=== PATIENT | male | born 1990 ===

== ENCOUNTER → 2018-09-18 21:26 | Outpatient (REF) | payer OTHER, SELFPAY ==
[2018-09-18 21:30] LABS: Bacteria Urine None Seen; RBC Urine None Seen (0-5/HPF)
[2018-09-18 21:49] LABS: Add Manual Diff / Slide Review NO; Basophils Absolute Auto 100 /uL (0-100); Basophils Percent Auto 1.4 % (0-2); Eosinophils Absolute Auto 100 /uL (0-450); Eosinophils Percent Auto 1.8 % (2-4); Hematocrit 46.5 % (41-53); Hemoglobin 15.4 g/dL (13.5-17.5); Lymphocytes Absolute Auto 1600 /uL (1100-4500); Lymphocytes Percent Auto 24.5 % (25-40); Mean Corpuscular HGB Conc 33.1 % (30-36); Mean Corpuscular Hemoglobin 30.4 PG (26-34); Mean Corpuscular Volume 91.8 fL (80-100); Monocytes Absolute Auto 800 /uL (0-900); Monocytes Percent Auto 11.6 % (3-14); Neutrophils Absolute Auto 3900 /uL (1500-7000); Neutrophils Percent Auto 60.7 % (50-75); Platelet Count 293 X10^3/uL (150-400); Red Blood Cell Count 5.07 X10^6/uL (4.5-5.9); Red Cell Distribution Width 13.6 % (11.6-14.8); White Blood Cell Count 6.5 X10^3/uL (4.5-11.0)
[2018-09-18 22:10] LABS: Appearance Urine UA CLEAR; Bilirubin Urine UA NEGATIVE (NEGATIVE); Color Urine UA YELLOW; Glucose Urine UA NEGATIVE (Negative); Ketones Urine UA NEGATIVE (NEGATIVE); Leukocyte Esterase Urine UA NEGATIVE (NEGATIVE); Nitrite Urine UA NEGATIVE (Negative); Occult Blood Urine UA NEGATIVE (Negative); Protein Urine UA NEGATIVE (Negative); Specific Gravity Urine UA 1.025 (1.000-1.035); Urobilinogen Urine UA 0.2 E.U./dL (0.2); pH Urine UA 6.5 (4.5-8.0)
[2018-09-18 22:29] LABS: Alanine Aminotransferase 31 IU/L (21-72); Albumin 4.4 g/dL (3.5-5.0); Albumin Globulin Ratio 1.4 (1.0-2.8); Alkaline Phosphatase 54 U/L (38-126); Aspartate Aminotransferase 23 IU/L (17-59); Bilirubin Total 0.3 mg/dL (0.2-1.3); Blood Urea Nitrogen 17 mg/dL (9-20); Calcium 9.6 mg/dL (8.4-10.2); Carbon Dioxide 25 mmol/L (22-32); Chloride 106 mmol/L (98-107); Cholesterol 164 mg/dL (140-199); Estimated Glomerular Filt Rate > 60.0 mL/min (>60); Globulin 3.2 g/dL (1.7-4.1); Glucose 94 mg/dL (70-100); HDL Cholesterol 64 mg/dL (40-60); HEMOLYSIS < 15 (0-50); LDL Cholesterol Calculated 87 mg/dL (<100); Potassium 4.6 mmol/L (3.4-5.1); Sodium 141 mmol/L (137-145); Total Protein 7.6 g/dL (6.3-8.2); Triglycerides 66 mg/dL (35-150)
[2018-09-18 22:42] LABS: Vitamin D 25 Hydroxy (D3) 45.6 ng/mL (30.0-100.0)
[2018-09-18 22:56] LABS: Thyroid Stimulating Hormone 1.66 uIU/mL (0.47-4.68)
[2018-09-18 23:40] LABS: Culture Indicated Urine Cult Not Indicated; WBC Urine 0-1/HPF (0-5/HPF)
== END ==
LOC: LAB 21:26
DX: Z00.00 Encounter for general adult medical examination without abnormal findings (principal)
CPT/HCPCS: 36415; 80053; 80061; 81001; 82306; 84443; 85025